=== PATIENT | male | born 1965 | race Caucasian/White ===

== ENCOUNTER 2017-03-06 11:59 | Emergency (ER) | payer OTHER ==
[2017-03-06 12:08] VITALS: RESP 16
--- NOTE | 2017-03-06 12:16 | CPEKG ---
Heart Rate: 36 RR Interval: 1667 P-R Interval: 172 QRSD Interval: 86 QT Interval: 472 QTC Interval: 366 P [place]: 81 QRS [place]: 72 T Wave [place]: 49 EKG Severity - BORDERLINE ECG - EKG Impression: SINUS BRADYCARDIA EKG Impression: BORDERLINE R WAVE PROGRESSION, ANTERIOR LEADS Electronically Signed By: Kevin Johnston 07-Mar-2017 13:56:31
--- NOTE | 2017-03-06 12:19 | EDPHY ---
HPI/HX/ROS/PE/MDM Narrative: CHIEF COMPLAINT: Palpitations. HPI: The patient is a 51-year-old male who complains of near syncopal episodes for the past two days with intermittent episodes of palpitations. The patient was diagnosed with poison oak last week and started on Prednisone. He took the medication for three days and stopped last night because he developed sudden onset of lightheadedness, nausea, and diaphoresis. This morning he gradually developed lightheadedness and felt near syncopal. He started feeling palpitations with no associated chest pain or shortness of breath. Of note, the patient went for an intense bike ride earlier this week. He has no history of cardiac disease. REVIEW OF SYSTEMS: Aside from elements discussed in the HPI, a comprehensive 10-point review of systems was reviewed and is negative. PMH: Denies. No known cardiac disease. SOCIAL HISTORY: . Active cyclist. PHYSICAL EXAM: General: Patient is alert, in no acute distress. ENT: Eyes are normal to inspection. ENT inspection normal. Neck: Normal inspection. Full range of motion. Respiratory: No respiratory distress. Breath sounds normal bilaterally. Cardiovascular: Regular rate and rhythm. Strong peripheral pulses. Abdomen: The abdomen is nontender to palpation. There are no peritoneal signs. There are normal bowel sounds. Back: Normal to inspection. No tenderness to palpation. Skin: Erythema to left cheek, 5cm area of erythema on ventral right wrist with scalae, left wrist with patchy erythema. Extremities: Normal appearance. Full range of motion. Neuro: Oriented x3. Normal motor function. Normal sensory function. Portions of this note were transcribed by a medical accountant. I personally performed a history, physical exam, medical decision making, and confirmed accuracy of information the transcribed note. ED Course: Patient recently started on Prednisone for poison oak presents with intermittent palpitations and near syncopal episodes. During these episodes patient's heart rate doubles to the 80s. Patient is usually bradycardic. Patient was placed on security monitor, intermittent PVCs and APCs seen. HR is bradycardic at 39. Plan to check electrolytes, EKG, and chest x-ray. EKG was ordered and interpreted by myself: Sinus bradycardia, rate 36. Please see [employer] system for official reading. Chest x-ray is negative for acute disease. Electrolytes are normal. 1400: I spoke to Dr. Angeles, Cardiology, he will see the patient in the ED. 1430: Dr. Angeles evaluated the patient and offered to see patient as outpatient. 1445: I offered admission for further observation. Patient declines, he would like to followup as an outpatient. MDM: This patient presents with palpitations and several episodes of near syncope. We performed an extensive evaluation including EKG, troponin, labs and chest x- ray, all of which are negative. Reviewing the patient's telemetry strips here in the emergency department, the patient is having frequent atrial premature contractions. I consulted Dr. Angeles from Cardiology who has evaluated the patient. He offered several options to the patient including admission to the hospital, urgent follow-up in their office tomorrow for discharge home. The patient refuses admission and would prefer to be discharged home. He is aware that the etiology of his symptoms is unclear known. I have encouraged him to stop using prednisone and to return for any worsening of condition. I see no evidence for acute coronary syndrome, pulmonary embolus, pneumothorax, thoracic aortic dissection or ventricular tachycardia. - Data Points Imaging Results: Imaging Impressions Chest X-Ray 03/06/17 12:39 Impression: Chest negative for acute cardiopulmonary abnormality. Imaging: Discussed imaging studies w/ overlock elastic attacher Radiologist, I viewed and interpreted images myself Laboratory Results: Laboratory Results 03/06/17 12:15 03/06/17 12:15 03/06/17 03/06/17 12:15 12:15 WBC 7.58 10^3/uL 10^3/uL (3.80-9.50) RBC 4.51 10^6/uL 10^6/uL (4.40-6.38) Hgb 14.2 g/dL g/dL (13.7-17.5) Hct 42.2 % % (40.0-51.0) MCV 93.6 fL fL (81.5-99.8) MCH 31.5 pg pg (27.9-34.1) MCHC 33.6 g/dL g/dL (32.4-36.7) RDW 12.8 % % (11.5-15.2) Plt Count 202 10^3/uL 10^3/uL (150-400) MPV 9.8 fL fL (8.7-11.7) Neut % (Auto) 65.0 % % (39.3-74.2) Lymph % (Auto) 20.7 % % (15.0-45.0) [place] % (Auto) 8.7 % % (4.5-13.0) Eos % (Auto) 4.1 % % (0.6-7.6) Baso % (Auto) 1.1 % % (0.3-1.7) Nucleat RBC Rel Count 0.0 % % (0.0-0.2) Absolute Neuts (auto) 4.93 10^3/uL 10^3/uL (1.70-6.50) Absolute Lymphs (auto) 1.57 10^3/uL 10^3/uL (1.00-3.00) Absolute Monos (auto) 0.66 10^3/uL 10^3/uL (0.30-0.80) Absolute Eos (auto) 0.31 10^3/uL 10^3/uL (0.03-0.40) Absolute Basos (auto) 0.08 10^3/uL 10^3/uL (0.02-0.10) Absolute Nucleated RBC 0.00 10^3/uL 10^3/uL (0-0.01) Immature Gran % 0.4 % % (0.0-1.1) Immature Gran # 0.03 10^3/uL 10^3/uL (0.00-0.10) Sodium 146 mEq/L H mEq/L (134-144) Potassium 4.3 mEq/L mEq/L (3.5-5.2) Chloride 105 mEq/L mEq/L (97-110) Carbon Dioxide 28 mEq/l mEq/l (22-31) Anion Gap 13 mEq/L mEq/L (8-16) BUN 27 mg/dL H mg/dL (7-23) Creatinine 1.1 mg/dL mg/dL (0.7-1.3) Estimated GFR > 60 Glucose 85 mg/dL mg/dL (70-100) Calcium 9.6 mg/dL mg/dL (8.5-10.4) Troponin I < 0.012 ng/mL ng/mL (0-0.034) Medications Given: Discontinued Medications Sodium Chloride (Ns) 1,000 mls @ 0 mls/hr IV ONCE ONE; Wide Open PRN Reason: Protocol Stop: 03/06/17 12:40 Last Admin: 03/06/17 12:56 Dose: 1,000 mls General Time Seen by Provider: 03/06/17 12:13 Initial Vital Signs: Initial Vital Signs Temperature (C) 36.1 C 03/06/17 12:04 Heart Rate 39 L 03/06/17 12:04 Respiratory Rate 16 03/06/17 12:04 Blood Pressure 116/61 03/06/17 12:04 O2 Sat (%) 99 03/06/17 12:04 O2 Delivery Mode Room Air Allergies/Adverse Reactions: Penicillins Allergy (Intermediate, Verified 10/28/09 07:31) Home Medications: Medication Instructions Recorded None 10/28/09 Departure - Departure Disposition: Home, Routine, Self-Care Clinical Impression: Near syncope, APC (atrial premature contractions) Condition: Good Instructions: Palpitations (ED), Near Syncope (ED) Additional Instructions: Followup with a ore tester further testing, as soon as possible, within one week. Return to the Emergency Department for fever, chest pain, shortness of breath, increasing pain or other worsening of condition. As we discussed, it is impossible to fully rule out heart disease as the cause of your chest pain in the emergency department. We would be happy to reevaluate you and observe you in the hospital at any time. Referrals: Christopher Foster MD [Primary Care Provider] - As per Instructions Ab Angeles MD [Medical Doctor] - As per Instructions (Cardiology) Report Scribed for: Ebenezer Ann Report Scribed by: Renea Curiel Date of Report: 03/06/17 Time of Report: 14:48
[2017-03-06] MEDS ORDERED: NS 1,000 ML IV ONE (12:39)
[2017-03-06 12:43] LABS: % IMMATURE GRANULYOCYTES 0.4 % (0.0-1.1); ABSOLUTE IMMATURE GRANULOCYTES 0.03 10^3/uL (0.00-0.10); ADD DIFF? NO; ADD MORPH? NO; ADD SCAN? NO; ATYPICAL LYMPHOCYTE FLAG 20 (0-99); FRAGMENT RBC FLAG 0 (0-99); HEMATOCRIT 42.2 % (40.0-51.0); HEMOGLOBIN 14.2 g/dL (13.7-17.5); LEFT SHIFT FLG 0 (0-99); LIPEMIA HEMOLYSIS FLAG 80 (0-99); MEAN CELL HEMOGLOBIN 31.5 pg (27.9-34.1); MEAN CELL HEMOGLOBIN CONCENTR. 33.6 g/dL (32.4-36.7); MEAN CELL VOLUME 93.6 fL (81.5-99.8); MEAN PLATELET VOLUME 9.8 fL (8.7-11.7); PLATELET CLUMPS FLAG 0 (0-99); PLATELET COUNT 202 10^3/uL (150-400); RED BLOOD CELL COUNT 4.51 10^6/uL (4.40-6.38); RED CELL DISTRIBUTION WIDTH 12.8 % (11.5-15.2)
[2017-03-06 12:48] LABS: ANION GAP 13 mEq/L (8-16); CALCIUM 9.6 mg/dL (8.5-10.4); CARBON DIOXIDE 28 mEq/l (22-31); CHLORIDE 105 mEq/L (97-110); CREATININE 1.1 mg/dL (0.7-1.3); GLOMERULAR FILTRATION RATE > 60; GLUCOSE 85 mg/dL (70-100); POTASSIUM 4.3 mEq/L (3.5-5.2); SODIUM 146 mEq/L (134-144)
[2017-03-06 13:00] LABS: TROPONIN I < 0.012 ng/mL (0-0.034)
--- NOTE | 2017-03-06 15:02 | PDCONSULT ---
Placement Director Note: CC: dizziness and near syncope. irregular heart beats Requesting physician: ER doc HPI: Patient is a 51 y/o male with unremarkable past medical/cardiovascular history, who presented to the ER at [facility] with complaints of "feeling poorly" with associated palpitations. Recent diagnosed with contact dermatitis (suspected poison oak) with prescription for steroids with 40/20/10 mg (three days each dose) taper. This therapy was started an the patient has had a total of 80 mg of steroids. Yesterday at 1700, the patient noted palpitations (skipped beats) and some near syncope symptoms. No chest pains or pressure, no PND or orthopnea. was present with the patient in the ER today, and felt that the patient "...did not look well..." with pallor. Recent cycling on Friday and no stanley limitations were noted outside of "leg cramps". Family history of both PVCs and atrial fibrillation, and it sounds like the patient has some concerns about his family history and the symptoms that he was noting. ECG with sinus bradycardia (40-45 bpm) and infrequent PACs and PVCs. Patient reports that he is currently asymptomatic. ROS: 12 point review of systems was unremarkable outside of that which was mentioned above PMHx: No HTN, HLP, CAD, or DM. Recent diagnosis of "contact dermatitis" with recommendations for steroid therapy PSHx: None FHx: Atrial fibrillation and PVCs SHx: Non smoker, no alcohol abuse, no illicits. with present. Regular and routine exercise (about 100 miles of cycling per week when work permits) Allergies to PCN (unspecified) Meds: Oral steroid taper Vitals: AF, HR: 39 bpm, RR: 16 with sats of 99% on room air. BP: 116/61 mm Hg. 0/10 CP GEN: awake and alert in NAD SKIN: rash to right wrist and posterior neck HEENT: NCAT with PERRLA Neck: no JVD, supple LUNGS: CTA bilaterally without crackles, wheeze, or rales COR: bradycardia, RRR without M/R/G, normal S1S2 with infrequent ectopy auscultated ABD: soft with NABS EXT: no C/C/E, DP/PT 2+, RAD 2+ Neuro: no focal deficits were noted LABS: Laboratory Tests 03/06/17 03/06/17 12:15 12:15 WBC 7.58 Hgb 14.2 Hct 42.2 Plt Count 202 Sodium 146 H Potassium 4.3 Chloride 105 Carbon Dioxide 28 Anion Gap 13 BUN 27 H Creatinine 1.1 Estimated GFR > 60 Glucose 85 Calcium 9.6 Troponin I < 0.012 ECG with sinus bradycardia and no ST/T wave changes. Telemetry: sinus bradycardia with PACs and PVCs noted infrequently CXR: normal COR, no infiltrates, no effusions Assessment: 51 y/o male with complaints feeling faint (but no syncope), and palpitations. Concerns were voiced about family history of arrhythmias (specifically atrial fibrillation). No new stressors at home or work. Newly started steroids for contact dermatitis with about 80 mg of therapy rendered. No limitations with cycling about 4 days prior. 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 Further encouragement of PO intake of fluids (it has been hot in [facility] the past several days). Patient obviously does not like being in the hospital, but he was able to appreciate these options.
[2017-03-06 15:12] VITALS: BP 109/65; PULSE 61; TEMP 98.4; O2SAT 97
== END 2017-03-06 15:12 | disposition home or self-care (01) ==
DX: I49.1 Atrial premature depolarization (principal); R55 Syncope and collapse; E86.9 Volume depletion, unspecified